=== PATIENT | female | born 1935 | race Caucasian/White ===

== ENCOUNTER → 2018-11-19 14:29 | Outpatient (CLI) | payer MEDICARE, OTHER, SELFPAY ==
--- NOTE | 2018-11-19 14:39 | RAD_ITS ---
STUDY: X-RAY - RIGHT HAND REASON FOR EXAM: Inflammatory polyarthropathy. TECHNIQUE: 3 view(s) of the hand. COMPARISON: None. FINDINGS: There is osteopenia. Normal radiocarpal articulation. There is joint space narrowing of the distal radioulnar joint with pressure erosion of the adjacent radius. Normal visualized carpal bones. Normal carpal articulations There is severe joint space narrowing of the carpometacarpal articulation of the thumb. Normal second through fifth carpometacarpal joints. Normal metacarpi. Normal metacarpophalangeal joint of the thumb. Normal interphalangeal joint of the thumb. Normal proximal and distal phalanges of the thumb. Normal metacarpophalangeal joints of the second through fifth fingers. There is joint space narrowing of the distal interphalangeal joints of the second through fifth fingers. Normal phalanges of the second through fifth fingers. There is mild chondrocalcinosis in the triangular fibrocartilage and lunotriquetral ligament. There is soft tissue calcification adjacent to the ulnar aspect of the distal ulna. RAD/Hand Min 3 Views IMPRESSION: Osteoarthritis. Chondrocalcinosis. Osteopenia. Electronically Signed: Will Houston MD at 12:46 EDT Tel , Service support ,
--- NOTE | 2018-11-19 14:39 | RAD_ITS ---
STUDY: X-RAY - LEFT HAND REASON FOR EXAM: Inflammatory polyarthropathy. TECHNIQUE: 3 view(s) of the hand. COMPARISON: None. FINDINGS: There is osteopenia. Normal radiocarpal articulation. Unremarkable visualized distal radioulnar joint. Normal visualized carpal bones. Normal carpal articulations There is severe joint space loss of the carpometacarpal articulation of the thumb. Normal second through fifth carpometacarpal joints. Normal metacarpi. There is moderate joint space narrowing of the metacarpophalangeal joint of the thumb. Normal interphalangeal joint of the thumb. Normal proximal and distal phalanges of the thumb. There is moderate joint space narrowing of the second and third metacarpophalangeal joints and mild palmar subluxation of the second metacarpophalangeal joint. There is joint space narrowing of the distal interphalangeal joints of the second through fifth fingers. Normal phalanges of the second through fifth fingers. There is chondrocalcinosis in the triangular fibrocartilage and lunotriquetral ligament. There is soft tissue calcification adjacent to the ulnar aspect of the distal ulna. RAD/Hand Min 3 Views IMPRESSION: Osteoarthritis. 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 Chondrocalcinosis. Osteopenia. Electronically Signed: Will Houston MD at 12:43 EDT Tel , Service support ,
[2018-11-19 15:40] LABS: Absolute Lymphocyte Count 0.91 X10^3/uL (0.83-4.51); Absolute Neutrophil Count 6.9 X10^3/uL (2.0-7.7); Basophil# 0.04 X10^3/uL; Basophil% 0.5 % (0-1); Eosinophil# 0.04 X10^3/uL; Eosinophils% 0.5 % (0-5); Hematocrit 37.5 % (37-47); Lymphocyte # 0.91 X10^3/ul (4.0); Lymphocyte % 10.9 % (19-41); Mean Corpuscular Hgb 30.6 pg (27.0-32.0); Mean Corpuscular Volume 95.7 fL (81-99); Mean Platelet Vol. 9.3 fl (6.2-12.0); Monocyte# 0.48 X10^3/uL; Monocyte% 5.7 % (0-10); NRBC Flagged by Analyzer 0 % (0-5); Neutrophil # 6.87 X10^3/uL (2.7-7.7); Neutrophil % 81.9 % (47-70); Platelet Count 316 K/mm3 (150-450); RBC Distribution Width CV 14.4 % (11.6-14.6); RBC Distribution Width SD 50.1 fl (35.1-43.9); Red Blood Count 3.92 M/mm3 (4.2-5.4); White Blood Count 8.4 K/mm3 (4.4-11.0)
[2018-11-19 15:58] LABS: Erythrocyte Sedimentation Rate 33 mm/hr (0-30)
[2018-11-19 16:07] LABS: ALB/GLOB Ratio 0.8 RATIO (0.9-2.4); AST(SGOT) 16 U/L (15-37); Alanine Aminotransfer ALT/SGPT 21 U/L (13-56); Albumin, Serum 3.4 g/dL (3.2-5.0); Alkaline Phosphatase 79 U/L (45-117); Anion Gap 5 (5-15); BUN 10 mg/dL (7-18); BUN/Creat Ratio 12.8 RATIO (10-20); Calcium,Total 8.9 mg/dL (8.5-10.1); Chloride 101 mmol/L (98-107); Creatinine, Serum 0.78 mg/dL (0.55-1.02); EST Glomerular Filtration Rate 75 mL/min (>60); Est Glom Filt Rate - Afr Amer 91 mL/min (>60); Globulin 4.2 g/dL (2.2-4.2); Glucose 103 mg/dL (74-106); Potassium 4.2 mmol/L (3.5-5.1); Protein, Total 7.6 g/dL (6.4-8.2); Rheumatoid Factor < 10.0 IU/mL (<15); Sodium Level 135 mmol/L (136-145)
[2018-11-20 10:42] LABS: Hepatitis B Surface Antibody Non-Reactive; Hepatitis B Surface Antigen Non-Reactive (Nonreactive); Hepatitis C Antibody Non-Reactive (Nonreactive)
[2018-11-21 14:08] LABS: SJOGREN'S Anti-SS-A test > 8.0 AI (0.0-0.9); SJOGREN'S Anti-SS-B test < 0.2 AI (0.0-0.9)
[2018-11-21 15:22] LABS: ANTINUCLEAR ANTIBODIES DIRECT Positive (Negative)
[2018-11-22 11:45] LABS: CCP IgG Antibodies 5 units (0-19); Hepatitis B Core AB IgM Negative (Negative)
== END ==
PROVIDERS: Family Provider Orthopaedic Surgery; PCP Orthopaedic Surgery; Referring Provider Internal Medicine Rheumatology; Visit Provider Internal Medicine Rheumatology
DX: M06.4 Inflammatory polyarthropathy (principal); M19.041 Primary osteoarthritis, right hand; M19.042 Primary osteoarthritis, left hand; M11.242 Other chondrocalcinosis, left hand; M11.241 Other chondrocalcinosis, right hand; G25.81 Restless legs syndrome; H35.30 Unspecified macular degeneration; H40.9 Unspecified glaucoma; G31.83 Neurocognitive disorder with Lewy bodies
CPT/HCPCS: 36415; 73130; 80053; 85025; 85652; 86038; 86140; 86200; 86235; 86431; 86705; 86706; 86803; 87340